=== PATIENT | female | born 1975 | race Caucasian/White ===

== ENCOUNTER 2025-02-20 08:04 | Day surgery (SDC) | payer OTHER ==
[2025-02-20] MEDS ORDERED: Midazolam 1 MG/ML 2 ML SDV IV ONE (08:05)
[2025-02-20] MEDS ORDERED: Lidocaine 2% 5 ML SDV INJECT ONE (08:05)
[2025-02-20] MEDS ORDERED: Propofol 200 MG/20 ML SDV IV ONE (08:05)
[2025-02-20] MEDS ORDERED: Lidocaine 2% 5 ML SDV ONE (08:05)
[2025-02-20] MEDS ORDERED: Ketamine 500 mg/10 ML MDV IV ONE (08:05)
[2025-02-20] MEDS ORDERED: Sodium Chloride 0.9% 10 ML Syringe FLUSH PRN (08:15)
[2025-02-20] MEDS: Lactated Ringers 1,000 ML IV SCH (09:08)
== END 2025-02-20 11:32 | disposition home or self-care (01) ==
LOC: FB.SDS 08:04
PROVIDERS: ATTEND Surgery
DX: K29.50 Unspecified chronic gastritis without bleeding (principal); K20.90 Esophagitis, unspecified without bleeding
CPT/HCPCS: 43239; 88305; 88342; J2003; J2250; J2704; J3490; J7120; 00731